=== PATIENT | female | born 1950 | race African-American/Black ===

== ENCOUNTER 2020-01-07 07:57 | Emergency (ER) | payer MEDICARE, BC ==
[~2020-01-07] VITALS: Ht 170.2 cm; Wt 55.3 kg
[2020-01-07 08:00] VITALS: BP 107/63
--- NOTE | 2020-01-07 08:00 | NUR ---
ED Nurse Note: Patient BIBA after syncopal episode at [employer]. Patient states she felt like she was going to passout and grabbed a rail to catch herself. Patient currently denies pain or any head trauma. Patient AxO x 4, no s/s of acute distress, breathing even and unlabored. Patient on the patient monitor, blood drawn and sent to lab. Patient currently unable to provide urine.
[2020-01-07 08:38] LABS: BASOPHILS % (AUTO) 1.3 % (0.0-2.0); EOSINOPHILS % (AUTO) 1.8 % (0.0-3.0); HEMOGLOBIN 12.9 G/DL (12.0-16.0); LYMPHOCYTES % (AUTO) 19.1 % (20.0-45.0); MEAN CORPUSCULAR VOLUME 80 FL (80-99); MONOCYTES % (AUTO) 6.6 % (1.0-10.0); NEUTROPHILS % (AUTO) 71.1 % (45.0-75.0); PLATELET COUNT 257 K/UL (150-450); RED CELL DISTRIBUTION WIDTH 12.7 % (11.6-14.8); WHITE BLOOD COUNT 5.8 K/UL (4.8-10.8)
[2020-01-07 08:49] LABS: INR 1.2 (0.9-1.1)
[2020-01-07 09:11] LABS: ANION GAP 13 mmol/L (5-15); BLOOD UREA NITROGEN 22 mg/dL (7-18); CALCIUM 9.5 MG/DL (8.5-10.1); CARBON DIOXIDE 31 MMOL/L (21-32); CHLORIDE 101 MMOL/L (98-107); CREATININE 0.9 MG/DL (0.55-1.30); POTASSIUM 3.4 MMOL/L (3.5-5.1); SODIUM 145 MMOL/L (136-145)
[2020-01-07 09:17] LABS: ALANINE AMINOTRANSFERASE 30 U/L (12-78); ALKALINE PHOSPHATASE 114 U/L (46-116); ASPARTATE AMINO TRANSFERASE 31 U/L (15-37); BILIRUBIN,TOTAL 0.7 MG/DL (0.2-1.0)
--- NOTE | 2020-01-07 09:34 | Diagnostic Imaging Report ---
Indication: Syncope, cough Technique: XRAY Chest 1v Comparison: None Findings: Heart size within normal limits. Mediastinal contours are sharp. Atherosclerotic calcifications noted in the aorta. There is no focal airspace consolidation. No pleural effusion, pneumothorax or radiographic evidence to suggest pulmonary edema. There is mild scoliosis. No acute osseous abnormality. Multiple surgical clips project over the right lateral chest/axillary region. IMPRESSION: No focal airspace consolidation, pleural effusion or pneumothorax. Mild scoliosis.
--- NOTE | 2020-01-07 09:45 | Diagnostic Imaging Report ---
Indication: Headache/pain status post fall Technique: Continuous helical CT scanning of the head was performed utilizing automated exposure control without intravenous contrast material. Axial and coronal reconstructions were obtained. Comparison: None CT dose: Total DLP 1179.1 mGycm; CTDI vol 53.4 mGy Findings: Patient significantly limited due to extensive streak artifact from right-sided cochlear implant. This particularly limits evaluation of the right cerebral hemisphere and subtle abnormalities in these regions may be obscured/missed. Within these limitations: No obvious/large acute intracranial hemorrhage For limitations of the exam. No shift of midline structures. 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 There are some calcifications along the left tentorium. No definite noncontrast CT evidence of acute territorial infarct. The uterus, sulci and cisterns are prominent, consistent with atrophy. There is nonspecific periventricular and subcortical white matter hypoattenuation most commonly related to chronic ischemic microvascular changes. Defect of the right mastoid air cells related to cochlear implant. Visualized mastoid air cells and paranasal sinuses are clear. There are postoperative changes involving the left orbit which are partially visualized. No depressed calvarial fractures identified. There is soft tissue swelling in the high right posterior parietal scalp. IMPRESSION: Limited exam due to significant streak artifact from right-sided cochlear implant. This particularly limits evaluation of the right hemisphere. Subtle abnormalities may be missed. Within limitations of this exam: Mild high right posterior parietal scalp soft tissue swelling. No acute calvarial fracture. No appreciable acute intracranial hemorrhage, mass effect or definite noncontrast CT evidence to suggest acute territorial infarct. Evidence of prior left occipital craniotomy with encephalomalacia in the left cerebellum likely postoperative in etiology. Correlation with CT recommended. Atrophy and nonspecific periventricular hypoattenuation suggestive of chronic ischemic microvascular changes. The CT scanner at [facility] is accredited by the [employer] and the scans are performed using protocols designed to limit radiation exposure to as low as reasonably achievable to attain images of sufficient resolution adequate for diagnostic evaluation.
[2020-01-07 10:00] VITALS: BP 110/68
--- NOTE | 2020-01-07 10:10 | NUR ---
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
--- NOTE | 2020-01-07 10:20 | Emergency Room Report ---
History of Present Illness General Chief Complaint: Syncope Source: Patient, EMS Present Illness HPI This patient states that she walked to [employer] this morning. She states lightheaded and she grabbed the railing. She states that the next thing she knew her glasses were off and a bystander was calling EMS. She states that unsure whether she hit her head. She states she has no pain. She states she has been hydrating. She denies recent illness. She denies fever or chills. She denies nausea or vomiting. She denies chest pain or shortness of. She denies cough or congestion. Breath. She denies abdominal pain. She denies dysuria or hematuria. She denies headache or neck pain. She has no other complaints. Allergies: Coded Allergies: No Known Allergies (Unverified , 01/07/20) COVID-19 Screening Contact w/high risk pt: No Recent Travel to affected area: No Experienced COVID-19 symptoms?: No Patient History Past Medical History: see triage record, HTN, CVA/TIA, other - Hx of trauma w/ craniectomy/ICB. Social History: Denies: smoking, alcohol use, drug use Reviewed Nursing Documentation: PMH: Agreed; PSxH: Agreed Nursing Documentation-PMH Hx Hypertension: Yes Review of Systems All Other Systems: negative except mentioned in HPI Physical Exam Vital Signs Date Time Temp Pulse Resp B/P (MAP) Pulse Ox O2 Delivery O2 Flow Rate FiO2 01/07/20 07:54 97.3 66 17 107/63 (78) 100 Room Air Sp02 EP Interpretation: reviewed, normal General Appearance: no apparent distress, alert, GCS 15, non-toxic Head: normocephalic, atraumatic Eyes: bilateral eye normal inspection, bilateral eye PERRL ENT: hearing grossly normal, normal pharynx, no angioedema, normal voice Neck: full range of motion, supple/symm/no masses Respiratory: chest non-tender, lungs clear, normal breath sounds, no respiratory distress, no retraction, no accessory muscle use, speaking full sentences Cardiovascular #1: regular rate, rhythm, no edema Gastrointestinal: normal bowel sounds, non tender, soft, non-distended, no guarding, no rebound Rectal: deferred Musculoskeletal: back normal, normal range of motion, gait/station normal, non- tender Neurologic: alert, motor strength/tone normal, oriented x3, sensory intact, responsive, speech normal Psychiatric: judgement/insight normal, memory normal, mood/affect normal, no suicidal/homicidal ideation Skin: no rash, normal color Medical Decision Making Diagnostic Impression: Primary Impression: Syncope ER Course I suspect the syncope that the patient is presenting with is a nonemergent in etiology. Regarding the history, has no shortness of breath or chest pain, and the syncope is not exertional. On physical exam, the patient is not hypotensive , has no findings of CHF, and no significant cardiac murmur suggestive of valvular heart disease or cardiac outflow obstruction. I did obtain a CT head which shows not acute injury. EKG showed no evidence of concerning findings of QT prolongation, Brugada syndrome or significant ST changes suggestive of acute ischemia, dysrhythmias or significant conduction abnormalities. On laboratory evaluation, blood sugar was normal and the patient is not anemic. The patient was counseled that, though unlikely, the possibility of an emergent cause of syncope may be present and that the patient should return immediately if symptoms persist or worsen. With further discussion, the patient did not want to be admitted to the hospital given the current pandemic of COVID-19. I believe the patient is stable for discharge to followup with her PMD for further workup. Laboratory Tests Test 01/07/20 08:07 01/07/20 08:20 Prothrombin Time 12.6 SEC (9.30-11.50) H Prothrombin Time INR 1.2 (0.9-1.1) H Activated Partial Thromboplast Time 23 SEC (23-33) White Blood Count 5.8 K/UL (4.8-10.8) Red Blood Count 4.60 M/UL (4.20-5.40) Hemoglobin 12.9 G/DL (12.0-16.0) Hematocrit 37.0 % (37.0-47.0) Mean Corpuscular Volume 80 FL (80-99) Mean Corpuscular Hemoglobin 28.0 PG (27.0-31.0) Mean Corpuscular Hemoglobin Concent 34.8 G/DL (32.0-36.0) Red Cell Distribution Width 12.7 % (11.6-14.8) Platelet Count 257 K/UL (150-450) Mean Platelet Volume 5.9 FL (6.5-10.1) L Neutrophils (%) (Auto) 71.1 % (45.0-75.0) Lymphocytes (%) (Auto) 19.1 % (20.0-45.0) L Monocytes (%) (Auto) 6.6 % (1.0-10.0) Eosinophils (%) (Auto) 1.8 % (0.0-3.0) Basophils (%) (Auto) 1.3 % (0.0-2.0) Sodium Level 145 MMOL/L (136-145) Potassium Level 3.4 MMOL/L (3.5-5.1) L Chloride Level 101 MMOL/L (98-107) Carbon Dioxide Level 31 MMOL/L (21-32) Anion Gap 13 mmol/L (5-15) Blood Urea Nitrogen 22 mg/dL (7-18) H Creatinine 0.9 MG/DL (0.55-1.30) Estimated Glomerular Filtration Rate > 60 mL/min (>60) Glucose Level 114 MG/DL (74-106) H Calcium Level 9.5 MG/DL (8.5-10.1) Total Bilirubin 0.7 MG/DL (0.2-1.0) Aspartate Amino Transferase (AST) 31 U/L (15-37) Alanine Aminotransferase (ALT) 30 U/L (12-78) Alkaline Phosphatase 114 U/L (46-116) Total Protein 7.9 G/DL (6.4-8.2) Albumin 4.0 G/DL (3.4-5.0) Globulin 3.9 g/dL Albumin/Globulin Ratio 1.0 (1.0-2.7) EKG Diagnostic Results Rate: normal Rhythm: NSR ST Segments: no acute changes Rhythm Strip Diag. Results EP Interpretation: yes Rate: 60's Rhythm: NSR, no PVC's, no ectopy Chest X-Ray Diagnostic Results Chest X-Ray Diagnostic Results : Chest X-Ray Ordered: Yes # of Views/Limited/Complete: 1 View Indication: Other - syncope EP Interpretation: Yes Interpretation: no consolidation, no effusion, no pneumothorax, no acute cardiopulmonary disease Impression: No acute disease Electronically Signed by: Laquita Kaye DO Last Vital Signs Date Time Temp Pulse Resp B/P (MAP) Pulse Ox O2 Delivery O2 Flow Rate FiO2 01/07/20 07:54 97.3 66 17 107/63 (78) 100 Room Air Status: improved Disposition: HOME, SELF-CARE Condition: Improved Scripts Unable to Obtain Active Prescriptions or Reported Meds Referrals: NON PHYSICIAN (PCP) Patient Instructions: Syncope Laquita Kaye DO Jan 07, 2020 10:20
--- NOTE | 2020-01-07 10:20 | NUR ---
ED Nurse Note: Patient still unable to provide urine, per Dr. Kaye, ok to wait until patient is able to urinate
--- NOTE | 2020-01-07 10:57 | NUR ---
ED Nurse Note: F/u call w/ lab regarding pending Troponin, Soledad in lab stated she will check to see if the blood has started processing.
--- NOTE | 2020-01-07 11:05 | NUR ---
ED Nurse Note: Patient assisted up to bathroom to provide urine sample, held hand to support patient and ensure safety while walking. Patient able to walk with steady gait.
[2020-01-07 11:23] LABS: APPEARANCE,URINE CLEAR; BILIRUBIN, URINE NEGATIVE (NEGATIVE); COLOR,URINE PALE YELLOW; GLUCOSE, URINE (UA) NEGATIVE (NEGATIVE); KETONES,URINE NEGATIVE (NEGATIVE); LEUKOCYTE ESTERASE ,URINE NEGATIVE (NEGATIVE); NITRITE,URINE NEGATIVE (NEGATIVE); PH,URINE 5 (4.5-8.0); PROTEIN,URINE 1+ (NEGATIVE); UROBILINOGEN,URINE NORMAL MG/DL (0.0-1.0)
[2020-01-07 11:55] VITALS: BP 107/70
[2020-01-07 11:56] VITALS: BP 107/63
--- NOTE | 2020-01-07 11:56 | NUR ---
ER DISCHARGE NOTE: Patient cleared for DC by Dr. Kaye. Patient AxO x 4, no s/s of acute distress. Patient walks with steady gait using cane. Advised to f/u with PCP if she has s/s of dizziness or lightheadedness. Patient verbalized understanding of discharge orders. Patient ID band removed, all belongings taken with patient.
== END 2020-01-07 11:56 | disposition home or self-care (01) ==
LOC: EDBD 07:57 → EMR 08:25
DX: R55 Syncope and collapse (principal); I10 Essential (primary) hypertension; Z86.73 Personal history of transient ischemic attack (TIA), and cerebral infarction without residual deficits
CPT/HCPCS: 36415; 70450; 71045; 80053; 81003; 84484; 85025; 85610; 85730; 93005; 99284; J7040